=== PATIENT | female | born 1945 | race Caucasian/White ===

== ENCOUNTER 2017-11-19 06:03 | Day surgery (SDC) | payer MEDICARE ==
[~2017-11-19] VITALS: Ht 154.9 cm; Wt 106.6 kg
[~2017-11-19 06:03] MED LIST: ALBU90OI INH; ALBU90OI6 INH; AMLO10 PO; AMLO5; AMLO5 PO; ASPI325; ASPI325 PO; ASPI81CH PO; Adult Low Dose81 MG; Allegra-D 24 H1 EACH PO; Aspirin EC81 MG PO; CHOL10002 PO; CIPR500 PO; CLIM.025TP PO; DICLOFENAC PO; DICLOFENAC-MIS1 EAC3 PO; DICLOFENAC-MIS1 EACH PO; DOXY100 PO; ESTR.05PBW TOP; ESTR1; ESTR2 PO; FURO40; GLUCHON PO; Gaviscon Foamt1 EACH PO; HYDCHL12.5 PO; HYDMOR2 PO; HYDSUL200 PO; Hair, Skin & N1 EACH PO; IBUHYD PO; IRON 27 MG; JOINT CARE PO; LORA1; LORA1 PO; LORA10ER PO; LORPSEER12 PO; LORPSEER24; LORPSEER24 PO; LOSA50 PO; LOVA20; LOVA40 PO; MELO7.5 PO; META800; METO5A; MISOPROSTOL PO; MOMENI; MONT10T; MONT10T PO; MOVE FREE JOIN1 EACH PO; OLME20; OMEG1CAP30 PO; OMEP20ER; OMEP40CA12 PO; OMEPRAZOLE MAGN20 MG PO; OXYACE5T PO; PANT40 PO; PHENA200 PO; Percocet 5-3251 EACH PO; RAMI5; RXOXYACE PO; SUPER B COMPLEX; Singulair10 MG PO; TRAM50 PO; VENL75ER; Vibramycin100 MG PO; Vitamin B Comple1 EA PO; XARELTO10 MG PO; [UNRECOGNIZED DRUG - OTHER]; [UNRECOGNIZED DRUG - OTHER] PO; [UNRECOGNIZED DRUG - REMARK]
[2017-11-20 04:02] LABS: BASOPHILS ABSOLUTE AUTO 0.05 K/mm3 (0.00-0.23); BASOPHILS PERCENT AUTO 0 % (0-2); EOSINOPHILS ABSOLUTE AUTO 0.11 K/mm3 (0.00-0.68); EOSINOPHILS PERCENT AUTO 1 % (0-6); Hemoglobin 9.4 g/dL (11.5-16.0); IMMATURE GRAN ABSOLUTE AUTO 0.08 K/mm3 (0.00-0.10); IMMATURE GRAN PERCENT AUTO 1 % (0-1); LYMPHOCYTES ABSOLUTE AUTO 2.43 K/mm3 (0.84-5.20); LYMPHOCYTES PERCENT AUTO 20 % (21-46); MONOCYTES ABSOLUTE AUTO 1.87 K/mm3 (0.16-1.47); MONOCYTES PERCENT AUTO 15 % (4-13); Mean Corpuscular HGB 27.4 pg (26.0-34.0); Mean Corpuscular HGB Conc 31.3 g/dL (31.5-36.5); Mean Corpuscular Volume 88 fL (80-100); Mean Platelet Volume 10.2 fL (9.1-12.4); NEUTROPHILS ABSOLUTE AUTO 7.83 K/mm3 (1.96-9.15); NEUTROPHILS PERCENT AUTO 63 % (41-73); Platelet Count 199 K/mm3 (150-400); RDW Standard Deviation 48.4 fL (35.1-46.3); Red Blood Cell Count 3.43 M/mm3 (3.80-5.20); White Blood Cell Count 12.37 K/mm3 (4.00-11.30)
[2017-11-20 04:20] LABS: Anion Gap 9 mmol/L (6-16); Blood Urea Nitrogen 17 mg/dL (8-24); Bun/Creatinine Ratio 19.7 (12.0-20.0); CO2, Blood 25 mmol/L (21-32); Calcium, Blood 8.3 mg/dL (8.5-10.1); Chloride, Blood 106 mmol/L (98-108); Creatinine, Blood 0.86 mg/dL (0.40-1.00); Glomerular Filtration Rate >60 (60-); Glucose, Blood 120 mg/dL (70-99); Potassium, Blood 3.8 mmol/L (3.5-5.5); Sodium, Blood 140 mmol/L (136-145)
[2017-11-20] MEDS ORDERED: XARELTO10 MG PO ×2 (10:26)
[2017-11-20] MEDS ORDERED: Percocet 5-3251 EACH PO ×2 (10:26)
[2018-07-02] MEDS ORDERED: ASPI81CH (13:46)
== END 2017-11-20 11:00 | disposition home or self-care (01) ==
LOC: SURS 06:03 → ORSCMMR 06:03 → PRE IP 06:03 → SURS 06:03 → PRE IP 07:30 → EDSTATUS 07:30 → SURS 10:59 → ORSCMMR 11-20 11:00 → SURS 11-20 11:00
PROVIDERS: Orthopaedic Surgery
PROC: 0SRD0JA Replacement of Left Knee Joint with Synthetic Substitute, Uncemented, Open Approach (ICD-10-PCS; principal; 2017-11-19 07:30)
DX: M17.12 Unilateral primary osteoarthritis, left knee (principal); I10 Essential (primary) hypertension; I50.9 Heart failure, unspecified; J45.909 Unspecified asthma, uncomplicated; E66.01 Morbid (severe) obesity due to excess calories; Z68.41 Body mass index [BMI] 40.0-44.9, adult; K21.9 Gastro-esophageal reflux disease without esophagitis; Z87.891 Personal history of nicotine dependence; Z79.899 Other long term (current) drug therapy; Z79.82 Long term (current) use of aspirin
CPT/HCPCS: 36415; 73560-LT; 80048; 85025; 86850; 86900; 86901; 88300; 94640; 94760; 97110; 97116; 97161; C1776; G8978; G8979; J0171; J0330; J0690; J0735; J1100; J1170; J1885; J2250; J2270; J2405; J2550; J2795; J3010; J7120

== ENCOUNTER 2017-11-26 10:48 | Emergency (ER) | payer MEDICARE ==
[~2017-11-26] VITALS: Ht 157.5 cm; Wt 108.9 kg
[2017-11-26 13:04] LABS: BASOPHILS ABSOLUTE AUTO 0.06 K/mm3 (0.00-0.23); BASOPHILS PERCENT AUTO 1 % (0-2); EOSINOPHILS ABSOLUTE AUTO 0.24 K/mm3 (0.00-0.68); EOSINOPHILS PERCENT AUTO 3 % (0-6); Hematocrit 30.8 % (33.0-51.0); Hemoglobin 9.5 g/dL (11.5-16.0); IMMATURE GRAN ABSOLUTE AUTO 0.07 K/mm3 (0.00-0.10); IMMATURE GRAN PERCENT AUTO 1 % (0-1); LYMPHOCYTES PERCENT AUTO 23 % (21-46); MONOCYTES ABSOLUTE AUTO 1.21 K/mm3 (0.16-1.47); MONOCYTES PERCENT AUTO 14 % (4-13); Mean Corpuscular HGB 27.2 pg (26.0-34.0); Mean Corpuscular HGB Conc 30.8 g/dL (31.5-36.5); Mean Corpuscular Volume 88 fL (80-100); Mean Platelet Volume 9.8 fL (9.1-12.4); NEUTROPHILS ABSOLUTE AUTO 5.08 K/mm3 (1.96-9.15); NEUTROPHILS PERCENT AUTO 59 % (41-73); Platelet Count 327 K/mm3 (150-400); RDW Coefficient Variation 15.1 % (11.7-14.2); RDW Standard Deviation 48.1 fL (35.1-46.3); Red Blood Cell Count 3.49 M/mm3 (3.80-5.20); White Blood Cell Count 8.66 K/mm3 (4.00-11.30)
[2017-11-26 13:24] LABS: Alanine Aminotransfer (ALT/SGP 27 U/L (12-78); Albumin, Blood 2.9 g/dL (3.4-5.0); Albumin/Globulin Ratio 0.6 (0.8-1.8); Alk Phos 140 U/L (50-136); Anion Gap 7 mmol/L (6-16); Aspartate Aminotrans (AST/SGOT 26 U/L (12-37); Bilirubin, Total 0.5 mg/dL (0.1-1.0); Blood Urea Nitrogen 14 mg/dL (8-24); Bun/Creatinine Ratio 19.4 (12.0-20.0); CO2, Blood 28 mmol/L (21-32); Calcium, Blood 8.9 mg/dL (8.5-10.1); Chloride, Blood 106 mmol/L (98-108); Creatinine, Blood 0.72 mg/dL (0.40-1.00); Globulin, Blood 4.7 g/dL (2.2-4.0); Glomerular Filtration Rate >60 (60-); Glucose, Blood 97 mg/dL (70-99); International Normalized Ratio 0.99; Potassium, Blood 3.8 mmol/L (3.5-5.5); Prothrombin Time Results 10.3 Sec (9.7-11.5); Sodium, Blood 141 mmol/L (136-145); Total Protein, Blood 7.6 g/dL (6.4-8.2)
[2017-11-26] MEDS ORDERED: Bactrim Ds Tab1 EACH PO (16:01)
[2018-07-02] MEDS ORDERED: ASPI81CH (13:46)
== END 2017-11-26 16:33 | disposition home or self-care (01) ==
LOC: ER 10:48
PROVIDERS: Physician Assistant
DX: G89.18 Other acute postprocedural pain (principal); M25.562 Pain in left knee; I10 Essential (primary) hypertension; R01.1 Cardiac murmur, unspecified; E78.00 Pure hypercholesterolemia, unspecified; Z87.891 Personal history of nicotine dependence; Z90.710 Acquired absence of both cervix and uterus; Z98.890 Other specified postprocedural states; Z96.651 Presence of right artificial knee joint; Z88.1 Allergy status to other antibiotic agents; Z88.5 Allergy status to narcotic agent; Z79.899 Other long term (current) drug therapy
CPT/HCPCS: 36415; 73562-LT; 80053; 83605; 85025; 85610; 87040; 93005; 93010; 93971; 96374; 99284; J3010

== ENCOUNTER → 2020-01-03 | Outpatient (CLI) | payer MEDICARE ==
[~2020-01-03] MED LIST changes: +ASPI81CH; +Bactrim Ds Tab1 EACH PO
== END ==
LOC: LAB SHORT 11:00 → LAB EV 11:00
DX: R32 Unspecified urinary incontinence (principal)
CPT/HCPCS: 87077; 87086; 87186

== ENCOUNTER 2020-07-10 17:23 | Emergency (ER) | payer MEDICARE ==
[~2020-07-10] VITALS: Ht 152.4 cm; Wt 110.2 kg
[2020-07-10 19:23] LABS: Source, Urine Clean Catch
[2020-07-10 19:28] LABS: Bilirubin, Urine Neg (Neg); Blood, Urine Neg (Neg); Glucose Qualitative, Urine Neg (Neg); Ketones, Urine Neg (Neg); Leukocyte Esterase, Urine Neg (Neg); Nitrite, Urine Neg (Neg); Protein, Urine Neg (Neg); Urobilinogen, Urine NORM (Normal)
[2020-07-10 19:40] LABS: Appearance, Urine Clear (Clear); Color, Urine Pale Yellow (P-Yellow)
[2020-07-10] MEDS ORDERED: Norco 7.5-3251 EACH PO (21:18)
== END 2020-07-10 21:39 | disposition home or self-care (01) ==
LOC: ER 17:23
PROVIDERS: Emergency Medicine
DX: S86.811A Strain of other muscle(s) and tendon(s) at lower leg level, right leg, initial encounter (principal); S20.211A Contusion of right front wall of thorax, initial encounter; E78.00 Pure hypercholesterolemia, unspecified; I10 Essential (primary) hypertension; Z88.1 Allergy status to other antibiotic agents; Z88.5 Allergy status to narcotic agent; Z79.899 Other long term (current) drug therapy; Z79.82 Long term (current) use of aspirin; W01.198A Fall on same level from slipping, tripping and stumbling with subsequent striking against other object, initial encounter; Y92.000 Kitchen of unspecified non-institutional (private) residence as the place of occurrence of the external cause
CPT/HCPCS: 71101; 73560-RT; 81003; 96374; 96375; 99284-25; A9270; J2405; J3010

== ENCOUNTER 2020-10-03 20:50 | Inpatient (IN) | payer MEDICARE ==
[~2020-10-03] VITALS: Ht 152.4 cm; Wt 107.6 kg
[~2020-10-03 20:50] MED LIST changes: +DICLOFENAC MIS PO; -DICLOFENAC-MIS1 EACH PO; +Norco 7.5-3251 EACH PO
[2020-10-03 21:47] LABS: BASOPHILS ABSOLUTE AUTO 0.01 K/mm3 (0.00-0.23); BASOPHILS PERCENT AUTO 0 % (0-2); EOSINOPHILS PERCENT AUTO 0 % (0-6); Hematocrit 41.5 % (33.0-51.0); Hemoglobin 13.3 g/dL (11.5-16.0); IMMATURE GRAN ABSOLUTE AUTO 0.04 K/mm3 (0.00-0.10); IMMATURE GRAN PERCENT AUTO 1 % (0-1); LYMPHOCYTES ABSOLUTE AUTO 1.71 K/mm3 (0.84-5.20); LYMPHOCYTES PERCENT AUTO 31 % (21-46); MONOCYTES ABSOLUTE AUTO 0.75 K/mm3 (0.16-1.47); MONOCYTES PERCENT AUTO 14 % (4-13); Mean Corpuscular HGB 27.9 pg (26.0-34.0); Mean Corpuscular Volume 87 fL (80-100); Mean Platelet Volume 11.5 fL (9.1-12.4); NEUTROPHILS ABSOLUTE AUTO 2.98 K/mm3 (1.96-9.15); NEUTROPHILS PERCENT AUTO 54 % (41-73); Platelet Count 174 K/mm3 (150-400); RDW Coefficient Variation 13.9 % (11.7-14.2); RDW Standard Deviation 45.2 fL (35.1-46.3); Red Blood Cell Count 4.76 M/mm3 (3.80-5.20); White Blood Cell Count 5.49 K/mm3 (4.00-11.30)
[2020-10-03 22:00] LABS: Albumin, Blood 2.9 g/dL (3.4-5.0); Albumin/Globulin Ratio 0.6 (0.8-1.8); Bilirubin, Total 0.6 mg/dL (0.1-1.0); Bun/Creatinine Ratio 20.7 (12.0-20.0); Creatinine, Blood 1.11 mg/dL (0.40-1.00); Globulin, Blood 4.6 g/dL (2.2-4.0); Total Protein, Blood 7.5 g/dL (6.4-8.2)
[2020-10-03 22:27] LABS: SARS-Cov-2 (COVID-19) PCR, MMC Positive (NEGATIVE)
[2020-10-03 22:29] LABS: Influenza A, PCR Negative (NEGATIVE); Influenza B, PCR Negative (NEGATIVE); Resp Syncytial Virus, PCR Negative (NEGATIVE)
--- NOTE | 2020-10-04 00:28 | NUR ---
Transfer report from BUSINESS OPERATIONS MANAGERHEMALATHA Guillen on 75 year old Female who is covid positive PT who is being admitted with resp failure on 2 l nc. TX in ER with steroid & remdesiver. Will be on tele monitor hx of heart murmur & HTN. Await admission.
[2020-10-04] MEDS ORDERED: MULVITA PO (01:07)
[2020-10-04] MEDS ORDERED: OMEP20ER PO (01:09)
--- NOTE | 2020-10-04 03:42 | NUR ---
75 year old Female covid positive yesterday & Spouse also covid 19 positive admitted to Covid unit for special resp droplet contact isolation. She is on 2 l nc dry cough. HOB up to promote lung expansion. On Tele monitor. SCDS in place resting quietly with oxygen in place.
[2020-10-04 11:16] LABS: CPK Creatine Kinase 102 U/L (26-193); Lactate Dehydrogenase (Ld),Bld 441 U/L (100-240); Troponin I <0.015 ng/mL (0.000-0.040)
--- NOTE | 2020-10-04 13:22 | NUR ---
echocardiogram complete
--- NOTE | 2020-10-04 18:44 | NUR ---
PATIENT A/OX4, UP WITH SBA TO RESTROOM. 2LO2 TO MAINTAIN SATS, SOB WITH EXERTION. STARTED ON DECADRON AND REMDESIVIR TO TREAT COVID 19. CONTACT/DROPLET PRECAUTIONS IN PLACE. SKIN INTACT. NONPRODCTIVE COUGH, LUNGS DIM THROUGHOUT. CONT/INCONTINENT OF URINE, WEARING ATTENDS. UPDATED DAUGHTER ALEISHA TODAY AND HER NUMBER IS ON THE BOARD. TOLERATING REGULAR DIET. CALM AND COOPERATIVE WITH CARE, ABLE TO MAKE NEEDS KNOWN.
[2020-10-05 04:57] LABS: BASOPHILS ABSOLUTE AUTO 0.01 K/mm3 (0.00-0.23); BASOPHILS PERCENT AUTO 0 % (0-2); EOSINOPHILS ABSOLUTE AUTO 0.01 K/mm3 (0.00-0.68); EOSINOPHILS PERCENT AUTO 0 % (0-6); Hemoglobin 14.1 g/dL (11.5-16.0); IMMATURE GRAN ABSOLUTE AUTO 0.06 K/mm3 (0.00-0.10); IMMATURE GRAN PERCENT AUTO 1 % (0-1); LYMPHOCYTES ABSOLUTE AUTO 1.33 K/mm3 (0.84-5.20); LYMPHOCYTES PERCENT AUTO 21 % (21-46); MONOCYTES ABSOLUTE AUTO 0.88 K/mm3 (0.16-1.47); MONOCYTES PERCENT AUTO 14 % (4-13); Mean Corpuscular HGB 27.9 pg (26.0-34.0); Mean Corpuscular HGB Conc 32.8 g/dL (31.5-36.5); Mean Corpuscular Volume 85 fL (80-100); Mean Platelet Volume 11.1 fL (9.1-12.4); NEUTROPHILS ABSOLUTE AUTO 4.05 K/mm3 (1.96-9.15); NEUTROPHILS PERCENT AUTO 64 % (41-73); Platelet Count 195 K/mm3 (150-400); RDW Coefficient Variation 13.8 % (11.7-14.2); Red Blood Cell Count 5.05 M/mm3 (3.80-5.20); White Blood Cell Count 6.34 K/mm3 (4.00-11.30)
[2020-10-05 05:17] LABS: Alanine Aminotransfer (ALT/SGP 30 U/L (12-78); Albumin/Globulin Ratio 0.6 (0.8-1.8); Alk Phos 108 U/L (50-136); Anion Gap 8 mmol/L (6-16); Aspartate Aminotrans (AST/SGOT 36 U/L (12-37); Bilirubin, Total 0.4 mg/dL (0.1-1.0); Blood Urea Nitrogen 27 mg/dL (8-24); Bun/Creatinine Ratio 33.8 (12.0-20.0); CO2, Blood 21 mmol/L (21-32); Calcium, Blood 9.3 mg/dL (8.5-10.1); Chloride, Blood 112 mmol/L (98-108); Globulin, Blood 5.2 g/dL (2.2-4.0); Glomerular Filtration Rate >60 (60-); Glucose, Blood 138 mg/dL (70-99); Magnesium, Blood 2.4 mg/dL (1.6-2.4); Phosphorus, Blood 2.5 mg/dL (2.5-4.9); Potassium, Blood 4.2 mmol/L (3.5-5.5); Sodium, Blood 141 mmol/L (136-145); Total Protein, Blood 8.2 g/dL (6.4-8.2)
--- NOTE | 2020-10-05 05:48 | NUR ---
Patient awake all night. very anxious about her hospitalization. Worried about her (who is also covid+) was sent home while she was admitted. She gets very sob just sitting up on side of the bed, She will not wear her 02 into the bathroom stating that she has had breathing difficulties all of her life and this is not that much different. Patient tells me she wants to go home today. I explained that the Remdesvir is a 4 day cycle of IV medications and that she would get well much more quickly and fully if s he would stay. Patient agreed to talk to Primary MD hospitalist to determine her best course
--- NOTE | 2020-10-05 15:11 | NUR ---
INCREASE IN O2 NEEDS. PT REQUIRING 3L O2 VIA NC. 4L NEEDED WITH AMBULATION. DR. MCGARRY NOTIFIED AND CONT. PULSE OX ORDER OBTAINED. RT PERAZA NOTIFIED.
--- NOTE | 2020-10-05 18:25 | NUR ---
SHIFT SUMMARY PT REQUIRING 3L O2, 4L WITH EXERTION. PT BECOME CONFUSED FOR A LITTLE PERIOD OF TIME THIS SHIFT, LIKELY RELATED TO HYPOXIA FROM CONTINUING TO TAKE OFF O2 TUBING. CHAIR ALARM IN PLACE AND CONT. PULSE OX APPLIED TO HELP ALERT STAFF WHEN PT TAKES OFF OW OR DESATS. PT DESATS ON RA TO THE LOW-MID 80S. PT UPSET THIS AFTERNOON, BECAUSE SHE FELL LIKE SHE "IS IN [facility]". PT EDUCATED ON THE REASON FOR THE ALARMS AND WHY SHE NEEDS O2 RIGHT NOW. PT STATES SHE "WILL BE LEAVING TOMORROW" AFTER SHE TALKS TO THE DR. NO OTHER CHANGES IN ASSESSMENT AT THIS TIME. PT UP IN CHAIR T/O MOST THE DAY. SHOWER GIVEN TODAY. VS REVIEWED. NO OTHER CHANGES IN ASSESSMENT AT THIS TIME. WILL CONTINUE TO MONITOR UNTIL TURNOVER IS COMPLETE.
--- NOTE | 2020-10-05 23:26 | NUR ---
PHYSICIAN COMMUNICATION CALLED DRUG ROOM OPERATOR PHYSICIAN, ANDREA SPENCER, TO LET HER KNOW THAT THE PATIENT HAD BEEN GETTING AGITATED AND CALLING HER FAMILY AT ALL HOURS OF THE NIGHT. AND THAT HER FAMILY WAS REQUESTING SOMETHING TO HELP THE PATIENT WITH HER AGITATION AND TO HELP HER SLEEP.
[2020-10-06 05:00] LABS: BASOPHILS ABSOLUTE AUTO 0.01 K/mm3 (0.00-0.23); BASOPHILS PERCENT AUTO 0 % (0-2); EOSINOPHILS PERCENT AUTO 0 % (0-6); Hematocrit 42.2 % (33.0-51.0); Hemoglobin 13.4 g/dL (11.5-16.0); IMMATURE GRAN ABSOLUTE AUTO 0.04 K/mm3 (0.00-0.10); IMMATURE GRAN PERCENT AUTO 1 % (0-1); LYMPHOCYTES ABSOLUTE AUTO 1.44 K/mm3 (0.84-5.20); LYMPHOCYTES PERCENT AUTO 19 % (21-46); MONOCYTES ABSOLUTE AUTO 1.14 K/mm3 (0.16-1.47); MONOCYTES PERCENT AUTO 15 % (4-13); Mean Corpuscular HGB 27.6 pg (26.0-34.0); Mean Corpuscular HGB Conc 31.8 g/dL (31.5-36.5); Mean Corpuscular Volume 87 fL (80-100); Mean Platelet Volume 11.1 fL (9.1-12.4); NEUTROPHILS ABSOLUTE AUTO 4.98 K/mm3 (1.96-9.15); NEUTROPHILS PERCENT AUTO 66 % (41-73); Platelet Count 219 K/mm3 (150-400); RDW Standard Deviation 45.2 fL (35.1-46.3); Red Blood Cell Count 4.86 M/mm3 (3.80-5.20); White Blood Cell Count 7.61 K/mm3 (4.00-11.30)
[2020-10-06 05:24] LABS: Anion Gap 7 mmol/L (6-16); Blood Urea Nitrogen 26 mg/dL (8-24); Bun/Creatinine Ratio 33.8 (12.0-20.0); CO2, Blood 22 mmol/L (21-32); Calcium, Blood 9.1 mg/dL (8.5-10.1); Chloride, Blood 115 mmol/L (98-108); Creatinine, Blood 0.77 mg/dL (0.40-1.00); Glomerular Filtration Rate >60 (60-); Glucose, Blood 132 mg/dL (70-99); Potassium, Blood 4.2 mmol/L (3.5-5.5); Sodium, Blood 144 mmol/L (136-145)
--- NOTE | 2020-10-06 05:26 | NUR ---
SHIFT SUMMARY PATIENT IS NOTABLY CONFUSED AND AGITATED TONIGHT. SHE HAD BECOME ANGRY AT THE SAFETY ALARMS THAT HAD BEEN PUT INTO PLACE DUE TO HER CONFUSION AND WAS CALLING HER FAMILY TO COME AND GET HER. EVENTUALLY SHE CALMED DOWN AND WAS ABLE TO FALL ASLEEP, HOWEVER SHE REMAINS IMPULSIVE. SHE HAS NO COMPLAINTS OF PAIN OR SHORTNESS OF BREATH, BUT HER OXYGEN NEEDS HAVE INCREASED OVERNIGHT AND THE PATIENT IS NOW ON 6.5 LITERS O2 VIA OXYMIZER AND SATS ARE HOLDING STEADY AT 92%. IV PATENT AND FLUSHED. BED IN LOWEST POSITION WITH WHEELS LOCKED AND ALARM ON. CALL LIGHT WITHIN REACH. REPORT GIVEN TO ONCOMING RN.
[2020-10-06 11:37] LABS: CPK Creatine Kinase 89 U/L (26-193); Lactate Dehydrogenase (Ld),Bld 442 U/L (100-240); Troponin I <0.015 ng/mL (0.000-0.040)
--- NOTE | 2020-10-06 18:36 | NUR ---
SHIFT SUMMARY PT SATING IN THE MID 90S ON 7L O2 VIA OXIMIZER. DESATS WITH EXERTION, BUT IMPROVED WITH REST. PT IRRITATED THIS AM ABOUT BEING IN THE HOSPITAL, BUT HAS BEEN CALM & COOPERATIVE T/O THE REST THE SHIFT. PT UP IN RECLINER FOR MOST THE SHIFT. ALARMS IN PLACE. NO OTHER ACUTE CHANGES IN ASSESSMENT AT THIS TIME. VS REVIEWED. WILL CONTINUE TO MONITOR UNTIL TURNOVER IS COMPLETE.
--- NOTE | 2020-10-07 05:02 | NUR ---
SUMMARY PT HAD NO ISSUES NOTED. PT HAS SLEPT T/O SHIFT. PT HAS BEEN USING BSC TO VOID TO REDUCE PERIODS OF SOB. PT SPO2 HAS MAINTAINED >90% T/O SHIFT. PT HAS BEEN COOPERATIVE AND PLESANT. PT CURRENTLY SLEEPING AND BREATHING EASY. CALL LIGHT IN REACH AND BED ALARM ON.
[2020-10-07 05:03] LABS: BASOPHILS ABSOLUTE AUTO 0.02 K/mm3 (0.00-0.23); BASOPHILS PERCENT AUTO 0 % (0-2); EOSINOPHILS PERCENT AUTO 0 % (0-6); Hematocrit 42.4 % (33.0-51.0); Hemoglobin 13.4 g/dL (11.5-16.0); IMMATURE GRAN ABSOLUTE AUTO 0.07 K/mm3 (0.00-0.10); IMMATURE GRAN PERCENT AUTO 1 % (0-1); LYMPHOCYTES ABSOLUTE AUTO 1.75 K/mm3 (0.84-5.20); LYMPHOCYTES PERCENT AUTO 22 % (21-46); MONOCYTES ABSOLUTE AUTO 1.25 K/mm3 (0.16-1.47); MONOCYTES PERCENT AUTO 16 % (4-13); Mean Corpuscular HGB 27.6 pg (26.0-34.0); Mean Corpuscular HGB Conc 31.6 g/dL (31.5-36.5); Mean Corpuscular Volume 87 fL (80-100); NEUTROPHILS ABSOLUTE AUTO 4.89 K/mm3 (1.96-9.15); NEUTROPHILS PERCENT AUTO 61 % (41-73); Platelet Count 232 K/mm3 (150-400); RDW Coefficient Variation 14.1 % (11.7-14.2); RDW Standard Deviation 45.1 fL (35.1-46.3); Red Blood Cell Count 4.85 M/mm3 (3.80-5.20); White Blood Cell Count 7.98 K/mm3 (4.00-11.30)
[2020-10-07 05:34] LABS: Anion Gap 8 mmol/L (6-16); Blood Urea Nitrogen 24 mg/dL (8-24); Bun/Creatinine Ratio 29.6 (12.0-20.0); CO2, Blood 23 mmol/L (21-32); Calcium, Blood 9.2 mg/dL (8.5-10.1); Chloride, Blood 113 mmol/L (98-108); Creatinine, Blood 0.81 mg/dL (0.40-1.00); Glomerular Filtration Rate >60 (60-); Glucose, Blood 118 mg/dL (70-99); Potassium, Blood 3.9 mmol/L (3.5-5.5); Sodium, Blood 144 mmol/L (136-145)
--- NOTE | 2020-10-07 17:41 | NUR ---
SHIFT SUMMARY PT SATING AT TITRATED TO 6L O2 VIA OXIMIZER WHILE AT REST. TOLERATING WELL. CONTINUES TO DESAT WITH EXERTION. PT REFUSED ORDERED NYSTATIN FOR YEAST IN GROIN. PT DAUGHTER BROUGHT IN HOME POWDER. PT IND WASHING AND REAPPLYING HOME POWDER TO GROIN WHILE SEATED. PT STATES THE ORDERED POWDER HURTS SO SHE WILL NOT USE IT. PT EDUCATED ON HOW YEAST CAN AFFECT THE SKIN AND CAUSE PAIN & BURNING IN THE AREA. PT CONTINUES TO REFUSE HOSPITAL POWDER. OTHERWISE COOPERATIVE WITH CARE T/O DAY. PT REFUSED SHOWER TODAY. NO OTHER CHANGES IN ASSESSMENT AT THIS TIME. VS REVIEWED. WILL CONTINUE TO MONITOR UNTIL TURNOVER IS COMPLETE.
[2020-10-08 04:27] LABS: BASOPHILS ABSOLUTE AUTO 0.01 K/mm3 (0.00-0.23); BASOPHILS PERCENT AUTO 0 % (0-2); EOSINOPHILS ABSOLUTE AUTO 0.01 K/mm3 (0.00-0.68); EOSINOPHILS PERCENT AUTO 0 % (0-6); Hematocrit 39.6 % (33.0-51.0); Hemoglobin 12.6 g/dL (11.5-16.0); IMMATURE GRAN ABSOLUTE AUTO 0.07 K/mm3 (0.00-0.10); IMMATURE GRAN PERCENT AUTO 1 % (0-1); LYMPHOCYTES ABSOLUTE AUTO 1.26 K/mm3 (0.84-5.20); LYMPHOCYTES PERCENT AUTO 20 % (21-46); MONOCYTES ABSOLUTE AUTO 0.92 K/mm3 (0.16-1.47); MONOCYTES PERCENT AUTO 15 % (4-13); Mean Corpuscular HGB 27.8 pg (26.0-34.0); Mean Corpuscular HGB Conc 31.8 g/dL (31.5-36.5); Mean Corpuscular Volume 87 fL (80-100); NEUTROPHILS ABSOLUTE AUTO 4.07 K/mm3 (1.96-9.15); NEUTROPHILS PERCENT AUTO 64 % (41-73); Platelet Count 214 K/mm3 (150-400); RDW Standard Deviation 45.6 fL (35.1-46.3); Red Blood Cell Count 4.53 M/mm3 (3.80-5.20); White Blood Cell Count 6.34 K/mm3 (4.00-11.30)
[2020-10-08 04:46] LABS: Anion Gap 5 mmol/L (6-16); Blood Urea Nitrogen 23 mg/dL (8-24); Bun/Creatinine Ratio 28.8 (12.0-20.0); CO2, Blood 27 mmol/L (21-32); Calcium, Blood 8.6 mg/dL (8.5-10.1); Chloride, Blood 113 mmol/L (98-108); Glomerular Filtration Rate >60 (60-); Glucose, Blood 121 mg/dL (70-99); Potassium, Blood 4.1 mmol/L (3.5-5.5); Sodium, Blood 145 mmol/L (136-145)
--- NOTE | 2020-10-08 05:36 | NUR ---
SHIFT SUMMARY PATIENT ALERT AND ORIENTED. WAS MEDICATED ONCE OVERNIGHT PER EMAR FOR A TEMPERATURE OF 101.6 AND NAUSEA. BOTH WERE RESOLVED WITH THE MEDICATION. HE HAD NO COMPLAINTS OF CHEST PAIN OR SHORTNESS OF BREATH. SAYS HE IS FEELING BETTER EACH DAY AND LOOKING FORWARD TO GETTING HOME AND SNUGGLING WITH HIS CATS. IV IS PATENT AND FLUSHED. BED IN LOWEST POSITION WITH WHEELS LOCKED. CALL LIGHT WITHIN REACH. REPORT GIVEN TO ONCOMING RN.
--- NOTE | 2020-10-08 05:46 | NUR ---
SHIFT SUMMARY PATIENT HAD LESS CONFUSION OVERNIGHT AND DID NOT HAVE ANY ISSUES WITH AGITATION. SHE CONTINUES TO DESATURATE EASILY ON ROOM AIR AND UPON EXHERTION. SHE IS CURRENTLY ON 6 LITERS OXYGEN PER OXYMIZER. IV PATENT AND FLUSHED. BED IN LOWEST POSITION WITH WHEELS LOCKED AND ALARM ON. CALL LIGHT WITHIN REACH. REPORT GIVEN TO ONCOMING RN.
--- NOTE | 2020-10-08 17:22 | NUR ---
SHIFT SUMMARY PATIENT IS ALERT AND ORIENTED, FORGETFUL THIS SHIFT. PATIENT HAS BEEN SITTING UP IN THE CHAIR THROUGHOUT THIS SHIFT. PATIENT REMAINS ON 6L O2. PATIENT DENIES PAIN THROUGHOUT THIS SHIFT. PATIENT IS A STANDBY ASSIST TO THE BATHROOM THROUGHOUT THIS SHIFT. PATIENT IS CURRENTLY SITTING UP IN THE CHAIR WATCHING TELEVISION.
--- NOTE | 2020-10-08 17:26 | NUR ---
Spiritual care note: Mrs. Yu was awake, dressed, and watching TV. She is soft-spoken and smiles easily. She was also very sleepy. She reports a strong joni that sustains her and was appreciaitve of prayer. Visit kept short as she was clearly tired. She is hopeful for full recovery and return home with spouse. I will remain available.
[2020-10-09 05:46] LABS: C-REACTIVE PROTEIN, EXT RANGE 3.52 mg/dL (0.000-0.300)
--- NOTE | 2020-10-09 06:06 | NUR ---
SHIFT SUMMARY AOX3-UNAWARE DATE. FORGETFUL @TIMES. FOLLOWS DIRECTIONS. TITRATED O2 TO 5L c OXIMIZER LAST NIGHT HOWEVER, THIS AM AROUND 0430 PT REPORTED FEELING SOB & SPO2 @88%, INCREASED O2 TO 7L VIA OXIMIZER & SPO2 90-94%. REPORTS NASAL BLEEDING, PT SWITCHED TO HUMIDIFIED HIGH FLOW NC @7L. E/U RESPIRATIONS. LUNGS SOUND DIM T/O. PT SPO2 DROPPED TO 80-84% AFTER AMBULATION TO RESTROOM, BUT AFTER A FEW MIN OF DEEP BREATHING SPO2 INCREASED BACK TO 94%. DENIES N/V OR PAIN. INCONT/CONT OF URINE, USES CALL LIGHT APPROPRIATELY & ABLE TO MAKE NEEDS KNOWN. WILL MONITOR.
--- NOTE | 2020-10-09 18:06 | NUR ---
PT IS ALERT AND ORIENTED AND ABLE TO EXPRESS ANY NEEDS. HER APPETITE HAS BEEN DOWN THIS SHIFT, REFUSING MOST OF HER MEALS. SHE DID REQUEST TUNA AND ENSURES TO BE SERVED AND THIS NURSE PUT A TRAY REQUEST IN. PT IS ABLE TO AMBULATE TO THE RESTROOM. SHE REMAINED ON 6-7 L O2 HIGHFLOW SHE CONTINUES TO DESAT QUICKLY WITH AMBULATION. PT UP IN CHAIR MOST OF THE SHIFT, CALL LIGHT WITHIN REACH. WILL CONTINUE TO MONITOR.
--- NOTE | 2020-10-10 05:01 | NUR ---
SHIFT SUMMARY NO ACUTE CHANGES TO REPORT THIS SHIFT. PT IS A/OX3, BUT CAN BE FORGETFUL AT TIMES. VERY SLOW TO RESPOND AND PROCESS QUESTIONS THAT ARE BEING ASKED. MOSTLY INDEPEDNENT IN THE ROOM, NEEDS SOME ASSISTANCE WITH ADLS. PT REMOVES OXYGEN AT TIMES, FORGETTING TO KEEP IT ON DESPITE REMINDERS. SATS QUICKLY DROP TO THE MID 70'S WHILE ON RA. PT REMAINS ON 7L VIA HIGH FLOW NC. SATS GREATER THAN 92%. BED IN LOWEST POSITON, CALL LIGHT WITHIN REACH.
--- NOTE | 2020-10-10 18:20 | NUR ---
shift summary pt has been independent in room. attempted to titrate o2 down from 7l/m by high flow tubing but would desaturate with any activity. poor appetite-states she doesn't like anything served but denies alteration in taste or smell. encouraged supplement intake when not eating a meal. appears more confused this evening thinking its bedtime rather than dinnertime. encouraged her to get back up out of bed and try to eat some dinner. sob with activity.
--- NOTE | 2020-10-10 21:48 | NUR ---
CONT. BIOX WENT IN TO CHECK ON PATIENT BIOX GOING OFF. WALKED IN TO BLOOD TISSUES AND IV ON THE FLOOR. BIOX PULLED FROM TABLE ONTO BED. APPEARING VERY DISTRESSED. STATED "IM TRYING TO CALL MY ". THIS RN WAS CLEANING UP PATIENT ON PHONE WITH STATING "YOU HAVE TO COME PICK ME UP". STATED NEEDED TO TALK TO DOCTOR OR SOMEONE BEFORE DOING SO. STILL PATIENT APPEAR VERY UPSET. PATIENT STATED THAT SHE FELT VIOLATED.
--- NOTE | 2020-10-10 22:05 | NUR ---
DAUGHTER SPOKE TO DAUGHTER OVER THE PHONE. STATED THAT WAS HOPEFUL THAT HER MOM COULD COME HOME AND WOULD LIKE A CALL FROM PHYSICIAN IN THE AM. ALSO WANTED TO KNOW IF THIS RN COULD GIVE HER SOMETHING FOR ANXIETY; DAUGHTER SAID THAT SHE WOULD CALL AND SPEAK TO HER MOM AND ASK THAT SHE TAKE THE MEDICATION IF IT WAS ORDERED.
--- NOTE | 2020-10-10 22:30 | NUR ---
PHYSICIAN CORRESPONDENCE LET ON-CALL PROVIDER KNOW SITUATION. ASKED FOR ANTI-ANXIETY MEDICATION; NEW ORDERS PLACED
--- NOTE | 2020-10-11 03:30 | NUR ---
ASSESSMENT MENTATION CHANGE; DOES NOT REMEMBER WHERE SHE IS, NOR TIME/DATE. STATES SHE WANTS TO LEAVE. MULTIPLE EXPLAINATIONS WHY SHE IS UNABLE TO DO SO AT THIS TIME. VERY DIFFICULT TO RE-DIRECT. PATIENT DID RECIEVE OT DOSE OF ZYPREXA AT BEGINNING OF NIGHT TO HELP WITH ANXIETY. CHAIR IN LOCKED POSITION; CHAIR ALARM ARMED. CALL LIGHT WITHIN REACH; HOWEVER, DOES NOT UTILIZE.
--- NOTE | 2020-10-11 04:02 | NUR ---
SHIFT SUMMARY ALERT, ABLE TO MAKE NEEDS KNOWN. DEFIANT WITH CARE T/O SHIFT. PULLED OUT IV, UNINTENTIONALLY AT BEGINNING OF SHIFT, HAS REFUSED TO ALLOW THIS RN TO RE-START. CONTINUES TO WANT TO GO HOME. NO C/O PAIN/DISCOMFORT. OFFERED REFRESHMENTS OR SNACKS T/O NIGHT; REFUSED. CHAIR HAS REMAINED LOCKED; CHAIR ALARM NOW ON. CALL LIGHT WITHIN REACH. WILL CONTINUE WITH CURRENT PLAN OF CARE. REPORT TO ONCOMING RN.
--- NOTE | 2020-10-11 04:48 | NUR ---
ASSESSMENT MENTATION RE-ASSESSMENT. ASKED ORIENTATION QUESTIONS AGAIN. ABLE TO GIVE PLACE, SELF AND FOLLOWING DIRECTIONS. ABLE TO ANSWER QUESTIONS ABOUT SELF SUCH IF SHE SPOKE TO HER AND WHEN THE LAST TIME SHE SPOKE TO HIM WAS; ALL CORRECT ANSWERS. CURRENTLY SITTING IN CHAIR WITH O2 ON. STILL REFUSING ANY NEEDS. GIVEN FRESH ICE WATER. CHAIR IN LOCKED POSITION; WILL ALARM ON. REPORT TO ONCOMING RN.
--- NOTE | 2020-10-11 05:00 | NUR ---
CONT BIOX CONTINUES TO REFUSE TO WEAR AFTER MULTIPLE TIMES OF BEING ASKED. SPOKE WITH RT; STATED THAT IF PATIENT IS AWARE ENOUGH TO ANSWER ORIENTATION QUESTIONS AND CONTINUES TO REFUSE BIOX CAN SIGN WAIVER NOT TO WEAR. RT STATED TO RE-ASSESS SATURATIONS PERIODICALLY. PATIENT ENVITABLY SIGNED WAIVER. UNDERSTANDING THAT IT WAS R/T TO HER NOT WEARING THE CONT BIOX.
--- NOTE | 2020-10-11 17:54 | NUR ---
SHIFT SUMMARY: NO ACUTE CHANGES TO REPORT THIS SHIFT. PT A&O X2-3; CALM AND COOPERATIVE WITH CARE. NO C/O PAIN THIS SHIFT. PT UP c SBA TO BATHROOM. O2 TITRATED TO 4L/M THIS SHIFT; PT TOLERATING WELL. UPDATED FAMILY (DAUGHTER OBINNA @ ) WITH PLAN OF CARE. WCTM.
--- NOTE | 2020-10-12 04:59 | NUR ---
NAVAL MARINE ENGINEER SUMMARY PT A/O X1 TO SELF. SLEPT WELL TONIGHT. PT GETS UP TO USE THE BATHROOM WITH STANDBY ASSIST. PT DOES NOT USE CALL LIGHT. BED ALARM IN PLACE. VSS. DENIES PAIN. ON 4L O2 SATTINING IN THE HIGH 90'S. NO ACUTE CHANGES.
[2020-10-12 05:51] LABS: C-REACTIVE PROTEIN, EXT RANGE 1.47 mg/dL (0.000-0.300)
[2020-10-12] MEDS ORDERED: ACET325 PO (14:57)
[2020-10-12] MEDS ORDERED: DEXA6 PO (14:58)
[2020-10-12] MEDS ORDERED: FLUTICASONE-SA1 EAC2 INH (14:58)
[2020-10-12] MEDS ORDERED: MICONAZOLE NIT130 GM TOP (14:59)
[2020-10-12] MEDS ORDERED: QUET25 PO (14:59)
[2020-10-12] MEDS ORDERED: [UNRECOGNIZED DRUG - OTHER] PO (15:01)
[2020-10-12] MEDS ORDERED: ZINC220 PO (15:01)
--- NOTE | 2020-10-12 16:46 | NUR ---
PT DISCHARGED AT 1625 WITH ALL PAPER WORK REVIEWED AND EDUCATIONAL MATERIAL SENT WITH PT. ALL INFO WAS REVIEWED WITH CHARLENE UPON MOTOR ELECTRICIAN AT N ENTRANCE WELL. PT HAS BEEN DOING GOOD TODAY. AO2-3 SOMETIMES PT APPEARED TO BE MORE CONFUSED THAN AT OTHER TIMES. PT HAD BEEN INDEPENDENT IN ROOM AND WAS DOING WELL ON 4 L. PT WAS TITRATED DOWN TO 2L, BUT RT FOUND PT NEEDED 4 L WITH ANY KIND OF AMBULATION. PT ESCORTED TO N ENTRACE VIA WHEELCHAIR. NO DISTRESS NOTED.
== END 2020-10-12 16:27 | disposition home or self-care (01) | DRG 177 ==
LOC: ER 20:50 → MEDS 23:14 → ER 10-04 00:16 → MEDS 10-04 00:16 → ENPENDDIS 10-12 14:14 → MEDS 10-12 16:27
PROVIDERS: Family Medicine; Hospitalist; Physician Assistant; ADMIT Internal Medicine
PROC: XW033E5 Introduction of Remdesivir Anti-infective into Peripheral Vein, Percutaneous Approach, New Technology Group 5 (ICD-10-PCS; principal; 2020-10-03)
PROC: 8E0ZXY6 Isolation (ICD-10-PCS; 2020-10-03)
PROC: 3E0333Z Introduction of Anti-inflammatory into Peripheral Vein, Percutaneous Approach (ICD-10-PCS; 2020-10-03)
DX: U07.1 COVID-19 (principal); J12.89 Other viral pneumonia; J96.01 Acute respiratory failure with hypoxia; Z68.42 Body mass index [BMI] 45.0-49.9, adult; N17.9 Acute kidney failure, unspecified; F03.91 Unspecified dementia, unspecified severity, with behavioral disturbance; E66.01 Morbid (severe) obesity due to excess calories; E78.5 Hyperlipidemia, unspecified; I10 Essential (primary) hypertension; M06.9 Rheumatoid arthritis, unspecified; K21.9 Gastro-esophageal reflux disease without esophagitis
CPT/HCPCS: 0241U; 36415; 71045; 80048; 80053; 82550; 82728; 83615; 83735; 83880; 84100; 84484; 85025; 85379; 86140; 93005; 93010; 93306; 94640; 94664; 94762; 96365; 96372; 97110; 97116; 97161; 97165; 97530; 97530-CQ; 97535; 99285-25; A9270; J0456; J1650; J7050

== ENCOUNTER 2021-02-01 18:35 | Emergency (ER) | payer MEDICARE ==
[~2021-02-01] VITALS: Ht 152.4 cm; Wt 113.8 kg
[~2021-02-01 18:35] MED LIST changes: +ACET325 PO; +DEXA6 PO; +FLUTICASONE-SA1 EAC2 INH; +MICONAZOLE NIT130 GM TOP; +MULVITA PO; +OMEP20ER PO; +QUET25 PO; +ZINC220 PO; +[UNRECOGNIZED DRUG - OTHER] PO
[2021-02-01 19:55] LABS: BASOPHILS ABSOLUTE AUTO 0.09 K/mm3 (0.00-0.23); BASOPHILS PERCENT AUTO 1 % (0-2); EOSINOPHILS ABSOLUTE AUTO 0.21 K/mm3 (0.00-0.68); EOSINOPHILS PERCENT AUTO 2 % (0-6); Hematocrit 40.4 % (33.0-51.0); Hemoglobin 12.8 g/dL (11.5-16.0); Mean Corpuscular HGB 28.1 pg (26.0-34.0); Mean Corpuscular HGB Conc 31.7 g/dL (31.5-36.5); Mean Corpuscular Volume 89 fL (80-100); Mean Platelet Volume 10.4 fL (9.1-12.4); Platelet Count 270 K/mm3 (150-400); RDW Coefficient Variation 13.2 % (11.7-14.2); RDW Standard Deviation 43.1 fL (35.1-46.3); Red Blood Cell Count 4.55 M/mm3 (3.80-5.20); White Blood Cell Count 12.79 K/mm3 (4.00-11.30)
[2021-02-01 20:01] LABS: IMMATURE GRAN ABSOLUTE AUTO 0.09 K/mm3 (0.00-0.10); IMMATURE GRAN PERCENT AUTO 1 % (0-1); LYMPHOCYTES PERCENT AUTO 33 % (21-46); MONOCYTES ABSOLUTE AUTO 1.46 K/mm3 (0.16-1.47); MONOCYTES PERCENT AUTO 11 % (4-13); NEUTROPHILS ABSOLUTE AUTO 6.74 K/mm3 (1.96-9.15); NEUTROPHILS PERCENT AUTO 53 % (41-73)
[2021-02-01 20:14] LABS: Alanine Aminotransfer (ALT/SGP 58 U/L (12-78); Albumin, Blood 3.7 g/dL (3.4-5.0); Albumin/Globulin Ratio 0.9 (0.8-1.8); Alk Phos 124 U/L (50-136); Anion Gap 5 mmol/L (6-16); Aspartate Aminotrans (AST/SGOT 26 U/L (12-37); Bilirubin, Total 0.5 mg/dL (0.1-1.0); Blood Urea Nitrogen 20 mg/dL (8-24); Bun/Creatinine Ratio 22.4 (12.0-20.0); CO2, Blood 25 mmol/L (21-32); Calcium, Blood 9.8 mg/dL (8.5-10.1); Chloride, Blood 110 mmol/L (98-108); Creatinine, Blood 0.89 mg/dL (0.40-1.00); Globulin, Blood 4.2 g/dL (2.2-4.0); Glomerular Filtration Rate >60 (60-); Glucose, Blood 93 mg/dL (70-99); Potassium, Blood 3.8 mmol/L (3.5-5.5); Sodium, Blood 140 mmol/L (136-145); Total Protein, Blood 7.9 g/dL (6.4-8.2)
[2021-02-01] MEDS ORDERED: AMOCLA875 PO (21:01)
[2021-02-01] MEDS ORDERED: Bactrim Ds Tab1 EACH PO (21:01)
== END 2021-02-01 21:16 | disposition home or self-care (01) ==
LOC: ER 18:35
PROVIDERS: Physician Assistant
DX: L03.213 Periorbital cellulitis (principal); I10 Essential (primary) hypertension; E78.00 Pure hypercholesterolemia, unspecified; Z79.899 Other long term (current) drug therapy; Z88.1 Allergy status to other antibiotic agents; Z88.5 Allergy status to narcotic agent; Z91.018 Allergy to other foods
CPT/HCPCS: 36415; 70481; 80053; 83605; 85025; 99284-25; A9270; A9270-GY; Q9967

== ENCOUNTER 2021-04-26 13:31 | Observation (INO) | payer MEDICARE ==
[~2021-04-26] VITALS: Ht 154.9 cm; Wt 117.0 kg
[~2021-04-26 13:31] MED LIST changes: -ALBU90OI INH; +AMOCLA875 PO; -MULVITA PO; -Singulair10 MG PO; -ZINC220 PO
[2021-04-26 14:12] LABS: BASOPHILS ABSOLUTE AUTO 0.09 K/mm3 (0.00-0.23); BASOPHILS PERCENT AUTO 1 % (0-2); EOSINOPHILS ABSOLUTE AUTO 0.14 K/mm3 (0.00-0.68); EOSINOPHILS PERCENT AUTO 1 % (0-6); Hematocrit 40.4 % (33.0-51.0); Hemoglobin 12.9 g/dL (11.5-16.0); IMMATURE GRAN ABSOLUTE AUTO 0.15 K/mm3 (0.00-0.10); IMMATURE GRAN PERCENT AUTO 1 % (0-1); LYMPHOCYTES ABSOLUTE AUTO 2.96 K/mm3 (0.84-5.20); LYMPHOCYTES PERCENT AUTO 26 % (21-46); MONOCYTES PERCENT AUTO 12 % (4-13); Mean Corpuscular HGB 28.2 pg (26.0-34.0); Mean Corpuscular HGB Conc 31.9 g/dL (31.5-36.5); Mean Corpuscular Volume 88 fL (80-100); Mean Platelet Volume 10.7 fL (9.1-12.4); NEUTROPHILS PERCENT AUTO 59 % (41-73); Platelet Count 264 K/mm3 (150-400); RDW Coefficient Variation 14.4 % (11.7-14.2); RDW Standard Deviation 46.6 fL (35.1-46.3); Red Blood Cell Count 4.57 M/mm3 (3.80-5.20); White Blood Cell Count 11.44 K/mm3 (4.00-11.30)
[2021-04-26 14:34] LABS: Alanine Aminotransfer (ALT/SGP 32 U/L (12-78); Albumin, Blood 3.3 g/dL (3.4-5.0); Albumin/Globulin Ratio 0.8 (0.8-1.8); Alk Phos 103 U/L (50-136); Anion Gap 6 mmol/L (6-16); Aspartate Aminotrans (AST/SGOT 22 U/L (12-37); Bilirubin, Total 0.4 mg/dL (0.1-1.0); Blood Urea Nitrogen 18 mg/dL (8-24); Bun/Creatinine Ratio 18.8 (12.0-20.0); CO2, Blood 25 mmol/L (21-32); Calcium, Blood 9.1 mg/dL (8.5-10.1); Chloride, Blood 112 mmol/L (98-108); Creatinine, Blood 0.96 mg/dL (0.40-1.00); Globulin, Blood 4.2 g/dL (2.2-4.0); Glomerular Filtration Rate 57 (60-); Glucose, Blood 104 mg/dL (70-99); Potassium, Blood 3.9 mmol/L (3.5-5.5); Sodium, Blood 143 mmol/L (136-145); Total Protein, Blood 7.5 g/dL (6.4-8.2); Troponin I <0.015 ng/mL (0.000-0.040)
[2021-04-26 15:57] LABS: International Normalized Ratio 1.01; Prothrombin Time Results 10.9 Sec (9.7-11.5)
[2021-04-26] MEDS ORDERED: LOVA40 PO (17:29)
[2021-04-26] MEDS ORDERED: DICL75ER PO (17:29)
[2021-04-26] MEDS ORDERED: LOSA25 PO (17:30)
[2021-04-26] MEDS ORDERED: Singulair10 MG PO (17:31)
[2021-04-26] MEDS ORDERED: ERGO50000 PO (17:31)
[2021-04-26] MEDS ORDERED: ALBU90OI INH (18:09)
[2021-04-26] MEDS ORDERED: MULVITA PO (18:10)
[2021-04-26] MEDS ORDERED: ZINC50 M3 PO (18:10)
[2021-04-26] MEDS ORDERED: PROBIOTIC1 EA13 PO (18:12)
[2021-04-26] MEDS ORDERED: OSTEO BI-FLEX PO (18:12)
[2021-04-26] MEDS ORDERED: GINKGO60 MG PO (18:13)
[2021-04-26] MEDS ORDERED: NYSTOP15 GM TOP (18:14)
[2021-04-26] MEDS ORDERED: Ketoconazole15 GM TOP (18:15)
--- NOTE | 2021-04-27 04:44 | NUR ---
SHIFT SUMMARY: PT IS ALERT AND ORIENTED. PT IS CALM AND COOPERATIVE WITH CARE. PT CALLS APPROPRIATELY. PT IS INDEPENDENT IN THE ROOM. PT DENIES PAIN, NAUSEA, VOMITING, AND SOB. PT TO HAVE STRESS TEST TODAY. PT SLEPT MUCH OF THE NIGHT WHEN NOT DISTURBED. NO ACUTE CHANGES OVERNIGHT. WILL CONTINUE TO MONITOR.
[2021-04-27 04:47] LABS: BASOPHILS ABSOLUTE AUTO 0.09 K/mm3 (0.00-0.23); BASOPHILS PERCENT AUTO 1 % (0-2); EOSINOPHILS ABSOLUTE AUTO 0.21 K/mm3 (0.00-0.68); EOSINOPHILS PERCENT AUTO 2 % (0-6); Hematocrit 40.8 % (33.0-51.0); Hemoglobin 13.1 g/dL (11.5-16.0); IMMATURE GRAN ABSOLUTE AUTO 0.05 K/mm3 (0.00-0.10); IMMATURE GRAN PERCENT AUTO 1 % (0-1); LYMPHOCYTES ABSOLUTE AUTO 3.12 K/mm3 (0.84-5.20); LYMPHOCYTES PERCENT AUTO 32 % (21-46); MONOCYTES ABSOLUTE AUTO 1.31 K/mm3 (0.16-1.47); MONOCYTES PERCENT AUTO 13 % (4-13); Mean Corpuscular HGB 28.2 pg (26.0-34.0); Mean Corpuscular HGB Conc 32.1 g/dL (31.5-36.5); Mean Corpuscular Volume 88 fL (80-100); Mean Platelet Volume 10.2 fL (9.1-12.4); NEUTROPHILS ABSOLUTE AUTO 5.07 K/mm3 (1.96-9.15); NEUTROPHILS PERCENT AUTO 52 % (41-73); Platelet Count 258 K/mm3 (150-400); RDW Coefficient Variation 14.4 % (11.7-14.2); RDW Standard Deviation 46.3 fL (35.1-46.3); Red Blood Cell Count 4.65 M/mm3 (3.80-5.20); White Blood Cell Count 9.85 K/mm3 (4.00-11.30)
[2021-04-27 05:11] LABS: Anion Gap 5 mmol/L (6-16); Blood Urea Nitrogen 20 mg/dL (8-24); Bun/Creatinine Ratio 20.9 (12.0-20.0); CO2, Blood 25 mmol/L (21-32); Calcium, Blood 9.6 mg/dL (8.5-10.1); Chloride, Blood 110 mmol/L (98-108); Creatinine, Blood 0.96 mg/dL (0.40-1.00); Glomerular Filtration Rate 57 (60-); Glucose, Blood 102 mg/dL (70-99); Potassium, Blood 3.8 mmol/L (3.5-5.5); Sodium, Blood 140 mmol/L (136-145); Troponin I <0.015 ng/mL (0.000-0.040)
[2021-04-27] MEDS ORDERED: SERT25 PO (11:55)
[2021-04-27] MEDS ORDERED: NITR.4SL SL (12:02)
--- NOTE | 2021-04-27 14:30 | NUR ---
PT WAS DISCHARGED ALERT AND ORIENTED X4, WITH FAMILY AND BELONGINGS AT SIDE. PT WAS EDUCATED ON FU APPOITNMENTS NEEDED, NEW MEDICATIONS, MEDS TO STOP USING ONCE HOME, AND SS TO WATCH OUT FOR. PT WAS ABLE TO TEACH BACK DIRECTIONS.
== END 2021-04-27 13:30 | disposition home or self-care (01) ==
LOC: ER 13:31 → MEDS 13:32
PROVIDERS: Emergency Medicine; ADMIT Family Medicine
DX: R07.9 Chest pain, unspecified (principal); R79.1 Abnormal coagulation profile; I10 Essential (primary) hypertension; K21.9 Gastro-esophageal reflux disease without esophagitis; J45.909 Unspecified asthma, uncomplicated; E78.00 Pure hypercholesterolemia, unspecified; M06.9 Rheumatoid arthritis, unspecified; E66.9 Obesity, unspecified; Z86.16 Personal history of COVID-19; Z86.718 Personal history of other venous thrombosis and embolism; Z68.42 Body mass index [BMI] 45.0-49.9, adult; Z96.653 Presence of artificial knee joint, bilateral; Z96.612 Presence of left artificial shoulder joint; Z88.1 Allergy status to other antibiotic agents; Z88.5 Allergy status to narcotic agent; Z91.018 Allergy to other foods; Z85.828 Personal history of other malignant neoplasm of skin
CPT/HCPCS: 36415; 71045; 71260; 80048; 80053; 84484; 85025; 85379; 85610; 85730; 93005; 93010; A9270; J1650; Q9967

== ENCOUNTER 2022-05-25 12:40 | Emergency (ER) | payer MEDICARE ==
[~2022-05-25] VITALS: Ht 157.5 cm; Wt 108.9 kg
[~2022-05-25 12:40] MED LIST changes: +ALBU90OI INH; +DICL75ER PO; +ERGO50000 PO; +GINKGO60 MG PO; +Ketoconazole15 GM TOP; +LOSA25 PO; +MULVITA PO; +NITR.4SL SL; +NYSTOP15 GM TOP; +OSTEO BI-FLEX PO; +PROBIOTIC1 EA13 PO; +SERT25 PO; +Singulair10 MG PO; +ZINC50 M3 PO
== END 2022-05-25 16:05 | disposition home or self-care (01) ==
LOC: ER 12:40
DX: S01.21XA Laceration without foreign body of nose, initial encounter (principal); S60.512A Abrasion of left hand, initial encounter; S60.511A Abrasion of right hand, initial encounter; I10 Essential (primary) hypertension; E78.00 Pure hypercholesterolemia, unspecified; J45.909 Unspecified asthma, uncomplicated; K21.9 Gastro-esophageal reflux disease without esophagitis; E78.5 Hyperlipidemia, unspecified; Z88.1 Allergy status to other antibiotic agents; Z88.5 Allergy status to narcotic agent; Z91.018 Allergy to other foods; Z79.899 Other long term (current) drug therapy; W18.30XA Fall on same level, unspecified, initial encounter
CPT/HCPCS: 12011; 70450; 72125; 99284-25; A9270

== ENCOUNTER → 2025-07-06 | Outpatient (CLI) | payer MEDICARE | END | disposition home or self-care (01) | LOC: LAB 17:11 → LAB SHORT 17:11 | DX: N39.490 Overflow incontinence (principal) | CPT/HCPCS: 87077; 87086; 87186 ==

== ENCOUNTER → 2025-07-12 | Outpatient (CLI) | payer MEDICARE | END | disposition home or self-care (01) | LOC: LAB SHORT 18:32 → LAB 18:32 | DX: N39.0 Urinary tract infection, site not specified (principal) | CPT/HCPCS: 87077; 87086; 87186 ==